=== PATIENT | female | born 1940 | race African-American/Black ===

== ENCOUNTER 2021-11-25 11:05 | Emergency (ER) | payer MEDICARE, MEDICAID ==
[~2021-11-25] VITALS: Ht 165.1 cm; Wt 68.2 kg
[2021-11-25 11:06] VITALS: TEMP 98.4
[2021-11-25 11:40] LABS: COLLECTION METHOD CATHETER
[2021-11-25 11:45] LABS: BASO % 0.6 % (0.0-2.0); EOS # 0.2 K/mm3 (0.0-0.7); EOS % 3.1 % (0.0-4.0); GRAN # 3.4 K/mm3 (1.4-6.5); GRAN % 65.7 % (42.2-75.2); LYMPH # 1.2 K/mm3 (1.2-3.4); LYMPH % 22.8 % (20.0-51.0); MEAN CELL VOLUME 86 fl (80.0-100.0); MEAN CORPUSCULAR HEMOGLOBIN 26 pg (27-31); MEAN CORPUSCULAR HGB CONC 30 g/dl (33.0-37.0); MEAN PLATELET VOLUME 11.2 fl (7.4-10.4); MONO # 0.4 K/mm3 (0.1-0.6); MONO % 7.6 % (1.7-9.3); PLATELET COUNT 169 K/mm3 (130-400); RED BLOOD COUNT 5.34 M/mm3 (4.10-5.30); REDCELL DISTRIBUTION WIDTH-CV 15.5 % (11.5-14.5)
[2021-11-25 11:49] LABS: PH 6 (5-8); SQUAMOUS EPITHELIAL None Seen /hpf (0-10); URINE APPEARANCE Clear (CLEAR/HAZY); URINE BACTERIA None Seen /hpf (NONE SEEN); URINE BILIRUBIN Negative (NEGATIVE); URINE BLOOD Negative (NEGATIVE); URINE COLOR Yellow (YELLOW); URINE GLUCOSE Negative (NEGATIVE); URINE KETONE Negative (NEGATIVE); URINE LEUKOCYTE ESTERASE Negative (NEGATIVE); URINE NITRATE Negative (NEGATIVE); URINE PROTEIN(semi-quant) Negative (NEGATIVE); URINE RBC 0-2 /hpf (0-2); URINE UROBILINOGEN Negative (NEGATIVE)
[2021-11-25 12:04] LABS: ALANINE AMINOTRANSFERASE 14 U/L (0-55); ALKALINE PHOSPHATASE 107 U/L (40-150); ANION GAP 15 mmol/L (7-16); AST,SGOT 20 U/L (5-34); BILIRUBIN,TOTAL 0.7 mg/dL (0.2-1.2); BLOOD UREA NITROGEN 12 mg/dL (10-20); CALCIUM 9.8 mg/dL (8.4-10.2); CARBON DIOXIDE 27 mmol/L (23-31); CHLORIDE 103 mmol/L (98-107); CREATININE, serum 0.96 mg/dL (0.57-1.11); GLUCOSE 133 mg/dL (70-99); LIPASE 46 U/L (8-78); POTASSIUM 3.5 mmol/L (3.5-4.5); SODIUM 145 mmol/L (136-145); TOTAL PROTEIN 7.8 gm/dL (6.2-8.1)
[2021-11-25 12:25] LABS: TSH w REFLEX 1.591 uIU/mL (0.350-4.940)
[2021-11-25 12:26] LABS: TROPONIN-I < 0.010 ng/mL (0.00-0.033)
[2021-11-25] MEDS ORDERED: LASIX 20MG TABL20 MG PO (20:42)
[2021-11-25] MEDS ORDERED: NAMENDA 10MG TA10 MG PO (20:42)
[2021-11-25] MEDS ORDERED: DRIZALMA SPRINK60 MG PO (20:42)
[2021-11-25] MEDS ORDERED: PEPCID40 MG PO (20:43)
[2021-11-25] MEDS ORDERED: NEPHRON FA TAB1 EACH PO (20:43)
[2021-11-25] MEDS ORDERED: ASPIRIN 81M81 MG/TA2 PO (20:44)
[2021-11-25] MEDS ORDERED: LYRICA 100MG C100 M1 PO (20:44)
[2021-11-25] MEDS ORDERED: FERRO-TIME325 MG PO (20:45)
[2021-11-25] MEDS ORDERED: FORT1000TA PO ×2 (20:45→20:46)
[2021-11-25] MEDS ORDERED: LANTUS SOLOS100 U/ML SQ (20:47)
[2021-11-25 20:53] VITALS: BP 154/74; PULSE 83
== END 2021-11-25 20:53 | disposition short-term general hospital (02) ==
LOC: COL.ER 11:05
PROVIDERS: Emergency Medicine
DX: I11.0 Hypertensive heart disease with heart failure (principal); E11.9 Type 2 diabetes mellitus without complications; K21.9 Gastro-esophageal reflux disease without esophagitis; Z79.82 Long term (current) use of aspirin; Z79.84 Long term (current) use of oral hypoglycemic drugs; Z79.4 Long term (current) use of insulin; Z79.899 Other long term (current) drug therapy; Z20.822 Contact with and (suspected) exposure to COVID-19
CPT/HCPCS: A9585; J7030

== ENCOUNTER 2022-04-16 13:04 | Emergency (ER) | payer MEDICARE, MEDICAID ==
[~2022-04-16] VITALS: Ht 162.6 cm; Wt 70.5 kg
[~2022-04-16 13:04] MED LIST: ASPIRIN 81M81 MG/TA2 PO; DRIZALMA SPRINK60 MG PO; FERRO-TIME325 MG PO; FORT1000TA PO; LANTUS SOLOS100 U/ML SQ; LASIX 20MG TABL20 MG PO; LYRICA 100MG C100 M1 PO; NAMENDA 10MG TA10 MG PO; NEPHRON FA TAB1 EACH PO; PEPCID40 MG PO
[2022-04-16 13:07] VITALS: BP 157/77; TEMP 98.8
[2022-04-16 13:23] LABS: BASO % 0.5 % (0.0-2.0); EOS # 0.1 K/mm3 (0.0-0.7); EOS % 1.3 % (0.0-4.0); GRAN # 2.4 K/mm3 (1.4-6.5); GRAN % 59.5 % (42.2-75.2); HEMATOCRIT 42.1 % (37.0-47.0); HEMOGLOBIN 13.3 g/dl (12.5-16.0); LYMPH # 1.2 K/mm3 (1.2-3.4); LYMPH % 30.5 % (20.0-51.0); MEAN CELL VOLUME 85 fl (80.0-100.0); MEAN CORPUSCULAR HEMOGLOBIN 27 pg (27-31); MEAN CORPUSCULAR HGB CONC 32 g/dl (33.0-37.0); MEAN PLATELET VOLUME 10.4 fl (7.4-10.4); MONO # 0.3 K/mm3 (0.1-0.6); MONO % 7.9 % (1.7-9.3); PLATELET COUNT 120 K/mm3 (130-400); RED BLOOD COUNT 4.95 M/mm3 (4.10-5.30); REDCELL DISTRIBUTION WIDTH-CV 15.3 % (11.5-14.5)
[2022-04-16 13:41] LABS: ALANINE AMINOTRANSFERASE 25 U/L (0-55); ALBUMIN 3.5 gm/dL (3.4-4.8); ALKALINE PHOSPHATASE 113 U/L (40-150); ANION GAP 14 mmol/L (7-16); AST,SGOT 26 U/L (5-34); BILIRUBIN,TOTAL 0.8 mg/dL (0.2-1.2); BLOOD UREA NITROGEN 10 mg/dL (10-20); CALCIUM 9.8 mg/dL (8.4-10.2); CARBON DIOXIDE 25 mmol/L (23-31); CHLORIDE 108 mmol/L (98-107); CREATININE, serum 1.07 mg/dL (0.57-1.11); GLUCOSE 136 mg/dL (70-99); POTASSIUM 3.3 mmol/L (3.5-4.5); SODIUM 147 mmol/L (136-145)
[2022-04-16 13:47] LABS: TROPONIN-I < 0.010 ng/mL (0.00-0.033)
[2022-04-16 14:14] LABS: INR 1.1 (0.8-3.0); PROTHROMBIN TIME 12.5 SECONDS (9.7-12.8)
[2022-04-16 16:58] VITALS: PULSE 63
[2022-04-17] MEDS ORDERED: [UNRECOGNIZED DRUG - OTHER] PO (09:54)
[2022-04-17] MEDS ORDERED: WELLBUTRIN 75MG75 MG PO (09:54)
[2022-04-17] MEDS ORDERED: LIPITOR 10MG10 MG PO (09:54)
[2022-04-17] MEDS ORDERED: CALCIUM 600-D 61 TAB PO (09:55)
[2022-04-17] MEDS ORDERED: CYMBALTA 60MG60 MG PO (09:55)
[2022-04-17] MEDS ORDERED: ARICEPT10 MG PO (09:55)
[2022-04-17] MEDS ORDERED: PEPCID40 MG PO (09:56)
[2022-04-17] MEDS ORDERED: MASON NATURAL325 MG PO (09:56)
[2022-04-17] MEDS ORDERED: LASIX 20MG TABL20 MG PO (09:56)
[2022-04-17] MEDS ORDERED: LANTUS100 U/ML SQ (09:57)
[2022-04-17] MEDS ORDERED: NORCO 325 MG-51 TAB PO (09:57)
[2022-04-17] MEDS ORDERED: LYRICA 100MG C100 M1 PO (09:58)
[2022-04-17] MEDS ORDERED: ZESTRIL 10MG10 MG PO (09:58)
[2022-04-17] MEDS ORDERED: ZOLOFT 50MG50 MG PO (09:59)
--- NOTE | 2022-04-20 14:00 | NUR ---
Late entry: On 04/16/2022, social professionals met with patient in the emergency room as was called by Roselyn with Dr Woodward's office of patient verbalized concerns regarding her home situation. Patient verbalzed that she moved into an apartment with her adult son and his girlfriend about 8 months ago from her daughter's [place]. Patient states she could not manage to live with her daughter any longer. Patient states she is safe and that she is not financially or physically harmed. Patient states she has her social security check deposited. Patient states she is ambulatory in the apartment and receives some medication monitoring by the son. Patient verbalized general displeasure with son's care for himself and his medical issues. Patient declines to have a conversation with son and social professionals and states that she will return to son's home upon discharge from the emergency room. Patient's son was waiting in waiting room during visit. Worker collaborated the above information with patient's nurse. On this date, social professionals provided information to Roselyn with Dr Woodward who states they will follow and monitor patient's needs.
== END 2022-04-16 16:58 | disposition home or self-care (01) ==
LOC: COL.ER 13:04
PROVIDERS: Emergency Medicine
DX: R07.2 Precordial pain (principal); E87.6 Hypokalemia; Z28.310 Unvaccinated for COVID-19

== ENCOUNTER 2022-04-17 09:21 | Day surgery (SDC) | payer MEDICARE, MEDICAID ==
[~2022-04-17] VITALS: Ht 165.1 cm; Wt 66.5 kg
[2022-04-17] VITALS (8 sets, daily range): BP systolic 112–176; BP diastolic 65–77; PULSE 59–71; TEMP 96.9–97.1
[2022-04-17] MEDS ORDERED: [UNRECOGNIZED DRUG - OTHER] PO (09:54)
[2022-04-17] MEDS ORDERED: WELLBUTRIN 75MG75 MG PO (09:54)
[2022-04-17] MEDS ORDERED: LIPITOR 10MG10 MG PO (09:54)
[2022-04-17] MEDS ORDERED: CYMBALTA 60MG60 MG PO (09:55)
[2022-04-17] MEDS ORDERED: CALCIUM 600-D 61 TAB PO (09:55)
[2022-04-17] MEDS ORDERED: ARICEPT10 MG PO (09:55)
[2022-04-17] MEDS ORDERED: LASIX 20MG TABL20 MG PO (09:56)
[2022-04-17] MEDS ORDERED: PEPCID40 MG PO (09:56)
[2022-04-17] MEDS ORDERED: MASON NATURAL325 MG PO (09:56)
[2022-04-17] MEDS ORDERED: NORCO 325 MG-51 TAB PO (09:57)
[2022-04-17] MEDS ORDERED: LANTUS100 U/ML SQ (09:57)
[2022-04-17] MEDS ORDERED: LYRICA 100MG C100 M1 PO (09:58)
[2022-04-17] MEDS ORDERED: ZESTRIL 10MG10 MG PO (09:58)
[2022-04-17] MEDS ORDERED: ZOLOFT 50MG50 MG PO (09:59)
--- NOTE | 2022-04-17 13:30 | NUR ---
1125 Pt returns from endo procedure via cart and RN assist to [facility]. Pt ambulates from cart to recliner with RN assist. Monitors on and alarms set. Call light within reach. Report received from LAINA Frost. Pt oriented and drowsy. Pt answers all questions appropriately. Pt requests water and crackers. Pt denies any pain or nausea. 1145 Pt taking food and drink well. No complications noted, but pt remains drowsy and resting. 1225 Pt continues to rest and appears in no distress. 1255 Pt's son and friend arrive. Pt more alert. 1305 Pt continues to remain alert and dialoguing with family. 1315 Discharge instructions given to pt and family. All questions answered to their satisfaction. Handed to pt are a thank you card and discharge information. 1330 Pt transferred out of the hospital via wheelchair and this RN assist, to private vehicle driven by family.
== END 2022-04-17 13:30 | disposition home or self-care (01) ==
LOC: SDCO 09:21
DX: Z12.11 Encounter for screening for malignant neoplasm of colon (principal); D12.2 Benign neoplasm of ascending colon; K57.30 Diverticulosis of large intestine without perforation or abscess without bleeding
CPT/HCPCS: J7030

== ENCOUNTER 2022-09-02 13:56 | Emergency (ER) | payer MEDICARE, MEDICAID ==
[~2022-09-02] VITALS: Ht 162.6 cm; Wt 63.6 kg
[~2022-09-02 13:56] MED LIST changes: +ARICEPT10 MG PO; +CALCIUM 600-D 61 TAB PO; +CYMBALTA 60MG60 MG PO; +LANTUS100 U/ML SQ; +LIPITOR 10MG10 MG PO; +MASON NATURAL325 MG PO; +NORCO 325 MG-51 TAB PO; +WELLBUTRIN 75MG75 MG PO; +ZESTRIL 10MG10 MG PO; +ZOLOFT 50MG50 MG PO; +[UNRECOGNIZED DRUG - OTHER] PO
[2022-09-02 14:05] VITALS: TEMP 98.7
[2022-09-02 14:52] LABS: COLLECTION METHOD CATHETER
[2022-09-02 14:56] LABS: BASO % 0.6 % (0.0-2.0); EOS % 1.1 % (0.0-4.0); GRAN # 2.3 K/mm3 (1.4-6.5); GRAN % 63.3 % (42.2-75.2); HEMATOCRIT 43.1 % (37.0-47.0); HEMOGLOBIN 13.9 g/dl (12.5-16.0); LYMPH % 28.4 % (20.0-51.0); MEAN CELL VOLUME 85 fl (80.0-100.0); MEAN CORPUSCULAR HEMOGLOBIN 27 pg (27-31); MEAN CORPUSCULAR HGB CONC 32 g/dl (33.0-37.0); MEAN PLATELET VOLUME 12.5 fl (7.4-10.4); MONO # 0.2 K/mm3 (0.1-0.6); MONO % 6.3 % (1.7-9.3); PLATELET COUNT 106 K/mm3 (130-400); RED BLOOD COUNT 5.08 M/mm3 (4.10-5.30); REDCELL DISTRIBUTION WIDTH-CV 14.2 % (11.5-14.5)
[2022-09-02 15:01] LABS: MUCOUS Present (NOT PRESENT); SQUAMOUS EPITHELIAL None Seen /hpf (0-10); URINE BACTERIA None Seen /hpf (NONE SEEN); URINE RBC 0-2 /hpf (0-2)
[2022-09-02 15:11] LABS: TRICYCLIC ANTIDEPRESS URINE NEGATIVE
[2022-09-02 15:19] LABS: ALANINE AMINOTRANSFERASE 24 U/L (0-55); ALBUMIN 3.7 gm/dL (3.4-4.8); ALCOHOL(ethanol),MEDICAL < 10 mg/dL (0-10); ALKALINE PHOSPHATASE 95 U/L (40-150); ANION GAP 14 mmol/L (7-16); AST,SGOT 27 U/L (5-34); BILIRUBIN,TOTAL 1.4 mg/dL (0.2-1.2); BLOOD UREA NITROGEN 14 mg/dL (10-20); CALCIUM 9.6 mg/dL (8.4-10.2); CARBON DIOXIDE 22 mmol/L (23-31); CHLORIDE 110 mmol/L (98-107); CREATININE, serum 0.93 mg/dL (0.57-1.11); GLUCOSE 77 mg/dL (70-99); POTASSIUM 3.2 mmol/L (3.5-4.5); SODIUM 146 mmol/L (136-145); TOTAL PROTEIN 7.1 gm/dL (6.2-8.1)
[2022-09-02 15:32] LABS: URINE APPEARANCE Clear (CLEAR/HAZY); URINE BLOOD Negative (NEGATIVE); URINE COLOR Yellow (YELLOW); URINE GLUCOSE Negative (NEGATIVE); URINE KETONE 1+ (NEGATIVE); URINE NITRATE Negative (NEGATIVE); URINE PROTEIN(semi-quant) Negative (NEGATIVE)
[2022-09-02 15:38] LABS: TSH w REFLEX 1.063 uIU/mL (0.350-4.940)
[2022-09-02 17:18] VITALS: BP 189/98; PULSE 85
--- NOTE | 2022-09-04 16:13 | NUR ---
IAN contacted IAN Isidro at PCP office. Per Sanna, they attempted to get the patient into the [facility], but they would not accept the patient w/ a MCR.adv plan in addition to having a wait list. Sanna also states that they are having trouble with the patients son on submitting required documents and making appropriate arrangements with the patients finances. At this time, the do not need any information from us.
== END 2022-09-02 17:18 | disposition home or self-care (01) ==
LOC: COL.ER 13:56
PROVIDERS: Emergency Medicine
DX: I10 Essential (primary) hypertension (principal); E11.9 Type 2 diabetes mellitus without complications; Z79.4 Long term (current) use of insulin